=== PATIENT | female | born 1980 | race Caucasian/White ===

== ENCOUNTER 2024-12-16 07:09 | Day surgery (SDC) | payer SELFPAY, OTHER ==
[2024-12-16] VITALS (13 sets, daily range): BP systolic 100–120; BP diastolic 66–89; PULSE 60–87; RESP 16–20; TEMP 36.2–36.6; O2SAT 99–100; BMI 22.6
--- OUTSIDE RECORDS SUMMARY | 2024-12-16 07:23 | XMS RPT_ITS | CCD ---
Author Organization [facility] CliniSymd Care Team Providers Care Line Service Technician Name Role Phone Dr. David Bonner DO Primary Care Provider Dr. David Bonner DO Referring Provider Martha BARCLAY, Dr. Gtz Attending Provider David Bonner Primary Care Unavailable David Bonenr Referring Unavailable Tresa Thomas Attending Unavailable Tresa Thomas Attending Unavailable Tresa Thomas Referring Unavailable David Bonner Primary Care Unavailable Medications Current Medications Medication Drug Class(es) Dates Sig (Normalized) Sig (Original) B-Complex With Vitamin C tablet (1 source) Start: 11-21-2024 B-Complex With Vitamin C tablet Active 1 {tbl} PO daily November 21, 2024 12:00am Problems Problem Classification Problem Date Documented Da te Episodic/Chronic Abdominal pain (1 source) Right upper quadrant pain; Translations: [Right upper quadrant pain] 11-21-2024 Episodic Anxiety disorders (1 source) Anxiety; Translations: [Anxiety disorder, unspecified] 11-21-2024 Chronic Gastrointestinal hemorrhage (1 source) Hematochezia; Translations: [Melena] 11-21-2024 Episodic Mood disorders (1 source) Depressive disorder; Translations: [Depression] 11-21-2024 Chronic Results Test Name Value Interpretation Reference Range Facil ity Surgery Visit Reporton 11-21 Surgery Visit Report [facility] [address] [place], [place] [address]. [address] [place] [address] OFFICE VISIT Date of Service: 11/21/24 MR#: [id number] Acct: [id number] Name: MAGNO DOUGLAS [place] Rep #: [id number] : 1980 Provider: Dr. Tresa beauchamp MD Age/Sex: 44/F Location: [facility] Status: Signed Intake Vital Signs 11/21/24 09:25 Height 5 ft 6 in Weight: 146 lb BMI 23.6 BP 120/79 Blood Pressure Location Rt brachial Position Sitting Respiration 16 Intake Visit Reasons: RUQ PAIN-self pay Chief Complaint: ruq Histology Tech Required: No Is patient in pain?: Yes (ruq discomfort) Allergies No Known Allergies Allergy (Unverified 11/21/24 09:26) Medications ???Medication ???Instructions ???Recorded ???Confirmed ???Type B-complex with vitamin C 1 tab PO QDAY 11/21/24 11/21/24 Hi story Have you fallen in the past year?: No PFSH Medical History (Updated 11/21/24 @ 10:17 by Chloé Pepper) Gallstones Blood in stool RUQ pain Depression Anxiety Family History (Updated 11/21/24 @ 09:25 by Chloé Pepper) Father Cancer Brother Hypertension Mother CVA (cerebral vascular accident) Social History (Updated 11/21/24 @ 09:25 by Chloé Pepper) Smoking Status: Never smoker alcohol intake: never HPI HPI HPI: 44 y/o F presents due to cholelithiasis and RUQ. Pt has had symptoms about 6 months, watching what she eats avoiding fatty/greasy food. US showed cholelithiasis normal wall and no pericholecystic fluid, normal LFTs. denies GERD symptoms. ROS General General: No weight change, appetite, fatigue, colon cancer or breast cancer HEENT HEENT: No difficulty swallowing, eye injury, eye surgery, swollen glands or hoarseness Endo Endocrine: No thyroid disease, diabetes mellitus, thyroid cancer, Hair loss, heat intolerance or cold intolerance Skin Skin: No rash or changing moles Musc Musculoskeletal: No back problems, arthritis, rheumatoid arthritis, gout or joint pain Cardio Cardiovascular: No murmur, pacemaker, heart disease, atrial fibrillation, high blood pressure, heart attack, heart stent, palpitations, shortness of breath with exertion or chest pain Psych Psychiatric: Yes depression and anxiety; No hearing voices Resp Respiratory: No shortness of breath, No sleep apnea, No cough, No COPD, No asthma, No emphysema and No wheezing Gastro Gastrointestinal: Yes abdominal pain, No nausea or vomiting, No diarrhea, No constipation, No blood in stool, No acid reflux, No hemorrhoids, No ulcers, Yes gallbladder problem and No black,tarry stools Bartolo Hematologic: No blood thinners, No blood disorders, No bleeding, No anemia and No blood clots Neuro Neurologic: No numbness and No tingling Exam Const General: cooperative, healthy appearing, comfortable and no acute distress HENTX Head: normocephalic and atraumatic Neck Neck: supple Resp Effort Inspection: normal respiratory effort Cardio Rate: regular rate GI Inspection: non-distended Palpation: soft and nontender Skin General: no rashes or lesions noted Neuro General: CN's II-XI intact bilaterally Extrem General: normal to inspection Psych Mental Status: mental status grossly normal Attitude: cooperative Assessment and Plan Assessment and Plan (1) Gallstones: Status: Acute (2) RUQ pain: Status: Acute Plan Reviewed the anatomy with the patient and discussed the procedure: robotic/laparoscopic cholecystectomy with possible cholangiograms/ICG injection, possible open. Review risks including but not limited to bleeding, infection, hernia, bile leak, retained gallstones requiring another procedure ERCP- Endoscopic Retrograde Cholangiopancreatograp hy, injury to another organ (bile ducts, common bile duct, small bowel, etc.) and conversion to an open procedure. All questions were answered. Coding Level of Care Code Off vis,new,level 3 Diagnoses Gallstones K80.20 RUQ pain R10.11 Clinical Quality Measures Falls Risk Screening/Assistive Devices Have you fallen in the past year?: No 11/22/24 1259 Date Tresa Thomas MD Cosigner Signature: Date (if applicable) CC: Dr. David Bonner MD [facility] Vital Signs Date Time Vital Sign Value Performing Clinician Faci lity 11-21-2024 09:25-0400 Body height 167.[address] David Bonner DO Work Phone: [facility] 11-21-2024 09:25-0400 Body mass index (BMI) [Ratio] 23.6 kg/m2 Dr. David Bonner DO Work Phone: [facility] 11-21-2024 09:25-0400 Body weight 66.[address] David Bonner DO Work Phone: [facility] 11-21-2024 09:25-0400 Diastolic blood pressure 79 mm[Hg] Dr. David Bonner DO Work Phone: [facility] 11-21-2024 09:25-0400 Respiratory rate 16 /min Dr. David Bonner DO Work Phone: [facility] 11-21-2024 09:25-0400 Systolic blood pressure 120 mm[Hg] Dr. David Bonner DO Work Phone: [facility] Encounters Encounter Date Encounter Type Care Provider Facility Start: 12-16-2024 ambulatory Tresa Thomas Facilit y:[facility] Start: 12-13-2024 Encounter for other preprocedural examination [facility] Start: 11-21-2024 End: 11-21-[address] Tresa Thomas MD -[facility] Work Phone: Start: 11-21-2024 End: 11-21-[address] David Bonner DO Work Phone: [facility] Work Phone: Payers Date Payer Category Payer Unknown . 2024 Self-pay Unknown [id number] Unknown [id number] Social History Date Type Detail Facility [facility]: [facility]24 [facility] Start: 1980 Sex Assigned At Female [facility] Evaluation note Note Date & Type Note Facility Evaluation note No assessment information availa ble [facility] Work Phone: Reason for referral (narrative) Note Date & Type Note Facility Reason for referral (narrative) No reason for referral information available [facility] Work Phone: Chief Complaint and Reason for Visit Chief Complaint Admit Date RUQ PAIN-self pay November 21, 2024 9:11a m Family History No Family History Records Found Relationship Condition Age at Onset Recorded Date/T maryellen father Malignant neoplasm Unknown brother Hypertension Unknown mother Cerebrovascular accident (CVA) Unknown Summary Purpose Advance Directives No Advanced Directives Records Found Additional Source Comments Care Teams (unrecognized sec tion and content) Team Status: Active Member Role Status Dates Dr. David Bonner DO Primary Care Provider Active Team Status: Inactive Member Role Status Dates Dr. David Bonnre DO Primary Care Provider Active Start: November 21, 2024 End: November 21, 2024 Dr. David Bonner DO Referring Provider Active Start: November 21, 2024 End: November 21, 2024 Dr. Tresa Thomas MD Attending Provider Active Start: November 21, 2024 End: November 21, 2024 Goals (unrecognized section and content) Goals may be documented in a n alternate section INFORMATION SOURCE (unrecogn ized section and content) DATE CREATED AUTHOR 12/14/2024 [facility] FOR RECORDS PERTAINING TO PATIENTS WHO ARE OR HAVE BEEN ENROLLED IN A CHEMICAL DEPENDENCY/SUBSTANCEABUSE PROGRAM, SOME INFORMATION MAY BE OMITTED. This clinical summary was aggregated from multiple sources. Caution should be exercised in using it in the provision of clinical care. This summary normalizes information from multiple sources, and as a consequence, information in this document may materially change the coding, format and clinical context of patient data. In addition, data may be omitted in some cases. CLINICAL DECISIONS SHOULD BE BASED ON THE PRIMARY CLINICAL RECORDS. [employer] provides no warranty or guarantee of the accuracy or completeness of information in this document.
--- NOTE | 2024-12-16 07:37 | EKG12_ITS ---
Test Reason : PRE OP Blood Pressure : */* mmHG Vent. Rate : 89 BPM Atrial Rate : 89 BPM P-R Int : 156 ms QRS Dur : 80 ms QT Int : 356 ms P-R-T Axes : 65 67 46 degrees QTcB Int : 433 ms Normal sinus rhythm Nonspecific ST abnormality Abnormal ECG No previous ECGs available Confirmed by OPAL BARCLAY, JESSICA ([id number]), commissioning editor ABY JURADO ([id number]) on 12/18/2024 1:25:04 PM Referred By: Tresa Thomas Confirmed By: JESSICA JOSEPH MD
[2024-12-16 07:41] LABS: Internal QC Validated? YES +Cl - CLEAR BKGD; Pregnancy, Urine Negative Negative
--- NOTE | 2024-12-16 07:47 | HP.PCM_ITS ---
History and Physical Date of Admission: 12/16/24 Date of Service: 11/21/24 MR#: [id number] Acct: [id number] Name: MAGNO DOUGLAS Rep #: [id number] : 1980 Provider: Dr. Tresa Thomas MD Age/Sex: 44/F Location: [facility] Status: Signed Intake Vital Signs 11/21/2508:25 Height 5 ft 6 in Weight: 146 lb BMI 23.6 BP 120/79 Blood Pressure Location Rt brachial Position Sitting Respiration 16 Intake Visit Reasons: RUQ PAIN-self pay Chief Complaint: ruq Applications Specialist Required: No Is patient in pain?: Yes (ruq discomfort) Allergies No Known Allergies Allergy (Unverified 11/21/24 09:26) Medications ?Medication ?Instructions ?Recorded ?Confirmed ?Type B-complex with vitamin C 1 tab PO QDAY 11/21/24 11/21/24 History Have you fallen in the past year?: No PFSH Medical History (Updated 11/21/24 @ 10:17 by Chloé Pepper) Gallstones Blood in stool RUQ pain Depression Anxiety Family History (Updated 11/21/24 @ 09:25 by Chloé Pepper) Father CancerBrother HypertensionMother CVA (cerebral vascular accident) Social History (Updated 11/21/24 @ 09:25 by Chloé Pepper) Smoking Status: Never smoker alcohol intake: never HPI HPI HPI: 44 y/o F presents due to cholelithiasis and RUQ. Pt has had symptoms about 6 months, watching what she eats avoiding fatty/greasy food. US showed cholelithiasis normal wall and no pericholecystic fluid, normal LFTs. denies GERD symptoms. ROS General General: No weight change, appetite, fatigue, colon cancer or breast cancer HEENT HEENT: No difficulty swallowing, eye injury, eye surgery, swollen glands or hoarseness Endo Endocrine: No thyroid disease, diabetes mellitus, thyroid cancer, Hair loss, heat intolerance or cold intolerance Skin Skin: No rash or changing moles Musc Musculoskeletal: No back problems, arthritis, rheumatoid arthritis, gout or joint pain Cardio Cardiovascular: No murmur, pacemaker, heart disease, atrial fibrillation, high blood pressure, heart attack, heart stent, palpitations, shortness of breath with exertion or chest pain Psych Psychiatric: Yes depression and anxiety; No hearing voices Resp Respiratory: No shortness of breath, No sleep apnea, No cough, No COPD, No asthma, No emphysema and No wheezing Gastro Gastrointestinal: Yes abdominal pain, No nausea or vomiting, No diarrhea, No constipation, No blood in stool, No acid reflux, No hemorrhoids, No ulcers, Yes gallbladder problem and No black,tarry stools Bartolo Hematologic: No blood thinners, No blood disorders, No bleeding, No anemia and No blood clots Neuro Neurologic: No numbness and No tingling Exam Const General: cooperative, healthy appearing, comfortable and no acute distress HENMT Head: normocephalic and atraumatic Neck Neck: supple Resp Effort & Inspection: normal respiratory effort Cardio Rate: regular rate GI Inspection: non-distended Palpation: soft and nontender Skin General: no rashes or lesions noted Neuro General: CN's II-XI intact bilaterally Extrem General: normal to inspection Psych Mental Status: mental status grossly normal Attitude: cooperative Assessment and Plan Assessment and Plan (1) Gallstones: Status: Acute (2) RUQ pain: Status: Acute Plan Reviewed the anatomy with the patient and discussed the procedure: robotic/laparoscopic cholecystectomy with possible cholangiograms/ICG injection, possible open. Review risks including but not limited to bleeding, infection, hernia, bile leak, retained gallstones requiring another procedure ERCP- Endoscopic Retrograde Cholangiopancreatography, injury to another organ (bile ducts, common bile duct, small bowel, etc.) and conversion to an open procedure. All questions were answered. Coding Level of Care Code Off vis,new,level 3 Diagnoses Gallstones K80.20 RUQ pain R10.11 Clinical Quality Measures Falls Risk Screening/Assistive Devices Have you fallen in the past year?: No 11/22/24 1259 <Electronically signed by Tresa Thomas MD> Date Tresa Thomas MD
[2024-12-16] MEDS: INDOCYANINE GREEN 3.75 MG in Syringe 1.5 ML 999 MG IV (08:00)
[2024-12-16] MEDS: Lactated Ringers 1,000 ML 15 ML IV ×2 (08:01→10:06)
--- NOTE | 2024-12-16 08:15 | PCM.PRE.AN2 ---
ASA Classification* ASA Classification ASA Classification: 2 Assessment & Plan Anesthesia* Anesthesia Assessment Anesthesia Assessment: Discussed sedation and/or anesthesia options, risks, benefits, and alternatives with patient/parents/legal guardian/POA. Questions invited. The patient/parents/legal guardian/POA seems to understand and agrees to proceed with anesthesia plan. Reviewed the physical assessment, medical history, allergy history and patient home medications list prior to surgery/procedure/anesthetic and documented any changes. Performed airway and anesthesia risk assessments. Anesthesia Type Anesthesia Type: General History Source History Obtained from:: Patient and Chart Anesthesia Focused Assessment* Temperature: 98 F Pulse Rate: 87 Blood Pressure: 118/89 Respiratory Rate: 16 Pulse Ox: 100 Oxygen Delivery Method: Room Air Airway Assessment Mouth opens: >3 cm Mallampati Score: I Teeth Condition: Partial and Upper Labs Anesthesia Preop lab: CBC CHEMISTRY COAG Urine Test Negative Negative 12/16/24 07:30 12/16/24 Pre-Assessment Diagnosis/Proposed Procedure Planned Operative Procedure(s): (N/A) Robotic Cholecystectomy Anesthesia History Anesthesia History - magnetic tester: Anesthesia History - magnetic tester Hx Hospitalization No 12/13/24 08:20 Any Problems With Anesthesia No 12/13/24 08:20 Cholinesterase deficiency No 12/13/24 08:20 You/Your Family Experience No 12/13/24 08:20 fever (hyperthermia) with Relationship Recent Exposure to Contagious No 12/16/24 07:48 Disease Does patient have nerve No 12/13/24 08:20 stimulator Patient instructed to have device shut off --Does patient have Pacemaker No 12/16/24 07:48 or ICD? When Was Last Pacemaker Check QUESTION #4 FULL TEXT: You/Your Family Experience fever (hyperthermia) with Anesthesia Last Oral Intake Last Oral intake: Last Oral Intake NPO since 20:00 12/16/24 07:48 Meds taken in AM with sips of No 12/16/24 07:48 water? Meds patient instructed to take am of surgery PONV PONV - magnetic tester: PONV - magnetic tester Female Yes 12/13/24 08:20 HX of Motion Sickness No 12/13/24 08:20 HX of N/V After Surgery No 12/13/24 08:20 Non-Smoker Yes 12/13/24 08:20 Duration of Surgery greater Yes 12/13/24 08:20 than 60 minutes Number of Risk Factors 3 12/13/24 08:20 PONV Score Moderate Risk 12/13/24 08:20 Height & Weight Height & Weight: Anesthesia: Height & Weight Height 5 ft 6 in 12/16/24 07:48 Weight: 63.6 kg 12/16/24 07:48 Body Mass Index (BMI) 22.6 12/16/24 07:48 Respiratory Assessment Respiratory Assessment - magnetic tester: Respiratory Tract Infection Hx - magnetic tester Hx Respiratory Tract Infection No 12/13/24 08:20 STOP Sleep Apnea STOP Sleep Apnea - magnetic tester: STOP Sleep Apnea - magnetic tester Hx Hypertension No 12/13/24 08:20 Hx Sleep Apnea No 12/13/24 08:20 CPAP BIPAP Do you snore loudly (louder No 12/13/24 08:20 than talking or can be heard Do you often feel tired/ No 12/13/24 08:20 fatigued/ sleepy during daytime? Has anyone observed you stop No 12/13/24 08:20 breathing during sleep? STOP Results Negative 12/13/24 08:20 QUESTION #5 FULL TEXT : Do you snore loudly (louder than talking or can be heard through closed doors)? Tobacco Use History Tobacco Use History - magnetic tester: Tobacco Use History - magnetic tester Tobacco Use Smoking Status Former smoker 12/13/24 08:20 Hx Tobacco Use No 12/13/24 08:20 Years Smoking Packs Smoked per Day Smoking Cessation Date was Yes - quit smoking within 15 12/13/24 08:20 within the last 15 years years Hx Smoking Cessation Date Hx Smoking Cessation Counseling Hematologic Medial History Hematologic Hx - magnetic tester: Hematologic Medical Hx - documentation lead Hx of Blood Transfusion No 12/13/24 08:20 Hx of Transfusion in last 3 No 12/13/24 08:20 Months Date of Last Transfusion (if within last 3 months) Ever experience any problems No 12/13/24 08:20 with transfusion(s)? Specify any problems Hx of Preganancy in last 3 No 12/13/24 08:20 Months Nurse Filling Out Transfusion MGRIFFITH 12/13/24 08:20 & Questions: Date: 12/13/24 12/13/24 08:20 Time: 08:22 12/13/24 08:20 Patient unable to answer at this time (ie. confused, unrespo /Reproduction History /Reproductive History - magnetic tester: /Reproductive Hx- magnetic tester Hx Now No 12/13/24 08:20 Gestational Age (in weeks): EDC: Hx Hx Para Hx Section SAB No 12/13/24 08:20 Active Medications Active Medications: Current Medications Generic Name Dose Route Start Last Admin Trade Name Kuldeep PRN Reason Stop Dose Admin Cefazolin Sodium 2 gm/ Sodium 110 mls @ 200 mls/hr 12/16/24 08:40 Chloride IV 12/16/24 09:12 INTRAOP ONE Lactated Ringer's 1,000 mls @ 15 mls/hr 12/16/24 07:30 12/16/24 08:01 IV 15 mls/hr .Q48H MADHAV Administration PFSH Medical History Wears glasses Wears dentures History of GI bleed Former smoker Gallstones Blood in stool RUQ pain Depression Anxiety Home Medications ?Medication ?Instructions ?Recorded ?Last Taken ?Type B-complex with vitamin C 1 tab PO QDAY 11/21/24 Unknown History Allergy/AdvReac Type Severity Reaction Status Date / Time No Known Allergies Allergy Verified 12/16/24 07:47 Family History Father Cancer Brother Hypertension Mother CVA (cerebral vascular accident) Surgical History No history of previous surgery Social History Smoking Status: Former smoker alcohol intake: never Review of Systems (Anesthesia) ROS Narrative System reviewed and no additional complaints, except as documented. Physical Exam Const alert and oriented x3 General Appearance: anxious Orientation / Consciousness: awake
--- NOTE | 2024-12-16 08:19 | PRE.ANES_ITS ---
ASA Classification* ASA Classification ASA Classification: 2 Assessment & Plan Anesthesia* Anesthesia Assessment Anesthesia Assessment: Discussed sedation and/or anesthesia options, risks, benefits, and alternatives with patient/parents/legal guardian/POA. Questions invited. The patient/parents/legal guardian/POA seems to understand and agrees to proceed with anesthesia plan. Reviewed the physical assessment, medical history, allergy history and patient home medications list prior to surgery/procedure/anesthetic and documented any changes. Performed airway and anesthesia risk assessments. 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 When Was Last Pacemaker Check QUESTION #4 FULL TEXT: You/Your Family Experience fever (hyperthermia) with Anesthesia Last Oral Intake Last Oral intake: Last Oral Intake NPO since 20:00 12/16/24 07:48 Meds taken in AM with sips of No 12/16/24 07:48 water? Meds patient instructed to take am of surgery PONV PONV - sales representative raw fibers: PONV - sales representative raw fibers Female Yes 12/13/24 08:20 HX of Motion Sickness No 12/13/24 08:20 HX of N/V After Surgery No 12/13/24 08:20 Non-Smoker Yes 12/13/24 08:20 Duration of Surgery greater Yes 12/13/24 08:20 than 60 minutes Number of Risk Factors 3 12/13/24 08:20 PONV Score Moderate Risk 12/13/24 08:20 Height & Weight Height & Weight: Anesthesia: Height & Weight Height 5 ft 6 in 12/16/24 07:48 Weight: 63.6 kg 12/16/24 07:48 Body Mass Index (BMI) 22.6 12/16/24 07:48 Respiratory Assessment Respiratory Assessment - sales representative raw fibers: Respiratory Tract Infection Hx - sales representative raw fibers Hx Respiratory Tract Infection No 12/13/24 08:20 STOP Sleep Apnea STOP Sleep Apnea - sales representative raw fibers: STOP Sleep Apnea - sales representative raw fibers Hx Hypertension No 12/13/24 08:20 Hx Sleep Apnea No 12/13/24 08:20 CPAP BIPAP Do you snore loudly (louder No 12/13/24 08:20 than talking or can be heard Do you often feel tired/ No 12/13/24 08:20 fatigued/ sleepy during daytime? Has anyone observed you stop No 12/13/24 08:20 breathing during sleep? STOP Results Negative 12/13/24 08:20 QUESTION #5 FULL TEXT : Do you snore loudly (louder than talking or can be heard through closed doors)? 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 Specify any problems Hx of Preganancy in last 3 No 12/13/24 08:20 Months Nurse Filling Out Transfusion MGRIFFITH 12/13/24 08:20 & Questions: Date: 12/13/24 12/13/24 08:20 Time: 08:22 12/13/24 08:20 Patient unable to answer at this time (ie. confused, unrespo /Reproduction History /Reproductive History - sales representative raw fibers: /Reproductive Hx- sales representative raw fibers Hx Now No 12/13/24 08:20 Gestational Age (in weeks): EDC: Hx Hx Para Hx Section SAB No 12/13/24 08:20 Active Medications Active Medications: Current Medications Generic Name Dose Route Start Last Admin Trade Name Freq PRN Reason Stop Dose Admin Cefazolin Sodium 2 gm/ Sodium 110 mls @ 200 mls/hr 12/16/24 08:40 Chloride IV 12/16/24 09:12 INTRAOP ONE Lactated Ringer's 1,000 mls @ 15 mls/hr 12/16/24 07:30 12/16/24 08:01 IV 15 mls/hr .Q48H MADHAV Administration PFSH Medical History Wears glasses Wears dentures History of GI bleed Former smoker Gallstones Blood in stool RUQ pain Depression Anxiety Home Medications ?Medication ?Instructions ?Recorded ?Last Taken ?Type B-complex with vitamin C 1 tab PO QDAY 11/21/24 Unkno wn History Allergy/AdvReac Type Severity Reaction Status Date / Time No Known Allergies Allergy Verified 12/16/24 07:47 Family History Father Cancer Brother Hypertension Mother CVA (cerebral vascular accident) Surgical History No history of previous surgery Social History Smoking Status: Former smoker alcohol intake: never Review of Systems (Anesthesia) ROS Narrative System reviewed and no additional complaints, except as documented.
--- NOTE | 2024-12-16 08:28 | PRE.ANES_ITS ---
ASA Classification* ASA Classification ASA Classification: 2 Assessment & Plan Anesthesia* Anesthesia Assessment Anesthesia Assessment: Discussed sedation and/or anesthesia options, risks, benefits, and alternatives with patient/parents/legal guardian/POA. Questions invited. The patient/parents/legal guardian/POA seems to understand and agrees to proceed with anesthesia plan. Reviewed the physical assessment, medical history, allergy history and patient home medications list prior to surgery/procedure/anesthetic and documented any changes. Performed airway and anesthesia risk assessments. 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 When Was Last Pacemaker Check QUESTION #4 FULL TEXT: You/Your Family Experience fever (hyperthermia) with Anesthesia Last Oral Intake Last Oral intake: Last Oral Intake NPO since 20:00 12/16/24 07:48 Meds taken in AM with sips of No 12/16/24 07:48 water? 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 Female Yes 12/13/24 08:20 HX of Motion Sickness No 12/13/24 08:20 HX of N/V After Surgery No 12/13/24 08:20 Non-Smoker Yes 12/13/24 08:20 Duration of Surgery greater Yes 12/13/24 08:20 than 60 minutes Number of Risk Factors 3 12/13/24 08:20 PONV Score Moderate Risk 12/13/24 08:20 Height & Weight Height & Weight: Anesthesia: Height & Weight Height 5 ft 6 in 12/16/24 07:48 Weight: 63.6 kg 12/16/24 07:48 Body Mass Index (BMI) 22.6 12/16/24 07:48 Respiratory Assessment Respiratory Assessment - humanities teacher: Respiratory Tract Infection Hx - humanities teacher Hx Respiratory Tract Infection No 12/13/24 08:20 STOP Sleep Apnea STOP Sleep Apnea - humanities teacher: STOP Sleep Apnea - humanities teacher Hx Hypertension No 12/13/24 08:20 Hx Sleep Apnea No 12/13/24 08:20 CPAP BIPAP Do you snore loudly (louder No 12/13/24 08:20 than talking or can be heard Do you often feel tired/ No 12/13/24 08:20 fatigued/ sleepy during daytime? Has anyone observed you stop No 12/13/24 08:20 breathing during sleep? STOP Results Negative 12/13/24 08:20 QUESTION #5 FULL TEXT : Do you snore loudly (louder than talking or can be heard through closed doors)? 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 Specify any problems Hx of Preganancy in last 3 No 12/13/24 08:20 Months Nurse Filling Out Transfusion MGRIFFITH 12/13/24 08:20 & Questions: Date: 12/13/24 12/13/24 08:20 Time: 08:22 12/13/24 08:20 Patient unable to answer at this time (ie. confused, unrespo /Reproduction History /Reproductive History - humanities teacher: /Reproductive Hx- humanities teacher Hx Now No 12/13/24 08:20 Gestational Age (in weeks): EDC: Hx Hx Para Hx Section SAB No 12/13/24 08:20 Active Medications Active Medications: Current Medications Generic Name Dose Route Start Last Admin Trade Name Freq PRN Reason Stop Dose Admin Cefazolin Sodium 2 gm/ Sodium 110 mls @ 200 mls/hr 12/16/24 08:40 Chloride IV 12/16/24 09:12 INTRAOP ONE Lactated Ringer's 1,000 mls @ 15 mls/hr 12/16/24 07:30 12/16/24 08:01 IV 15 mls/hr .Q48H MADHAV Administration PFSH Medical History Wears glasses Wears dentures History of GI bleed Former smoker Gallstones Blood in stool RUQ pain Depression Anxiety Home Medications ?Medication ?Instructions ?Recorded ?Last Taken ?Type B-complex with vitamin C 1 tab PO QDAY 11/21/24 Unkno wn History Allergy/AdvReac Type Severity Reaction Status Date / Time No Known Allergies Allergy Verified 12/16/24 07:47 Family History Father Cancer Brother Hypertension Mother CVA (cerebral vascular accident) Surgical History No history of previous surgery Social History Smoking Status: Former smoker alcohol intake: never Review of Systems (Anesthesia) ROS Narrative System reviewed and no additional complaints, except as documented.
[2024-12-16] MEDS: Cefazolin 2 GM in 0.9% Normal Saline (100mL Bag) 100 ML IV (08:35)
--- NOTE | 2024-12-16 08:40 | GALL_PTH ---
PATIENT: MAGNO DOUGLAS LOC: [facility] [place] U#:[id number] AGE/SX: 44/F ROOM: RE12/16/[address]: Dr. Tresa Thomas MD : 1980 BED: DIS: 12/16/2024 SPEC #: [id number] RECD: 12/16/24 11:09 STATUS: NOLAN MATTI #: [id number] DEMARIO: 12/16/24 08:[address]: Tresa Thomas DEPT: SURGICAL PATHOLOGY RECD BY: Kenny Forde ENTERED: 12/16/24 11:43 SP TYPE: NICK MATUTE DR: Dr. David Bonner, DO Tissues: A - Gallbladder, NOS Procedures: Surgery Specimen Level III HEADER OPERATION: Robotic cholecystectomy PRE-OP DIAGNOSIS: Gallstones, right upper quadrant pain TISSUE SUBMITTED: A- Gallbladder MICROSCOPIC DIAGNOSIS A. Gallbladder, gallstones, cholecystectomy: - Cholelithiasis. MICROSCOPIC DESCRIPTION Slides are reviewed. GROSS DESCRIPTION A. Received in formalin labeled with the patient's name and date of . Designated as gallbladder is a 7.2 x 3.0 x 2.9 cm pink-purple, distended and intact gallbladder with attached patent cystic duct (inked black, shaved). A lymph node is not present. Opening reveals light green tenacious bile and multiple irregular pigmented choleliths, ranging <0.1 cm to 0.5 cm. The mucosa is farris-red and granular with a maximum wall thickness of <0.1 cm. Forensic Psychiatrist sections are submitted in 1 cassette. TN 12/16/2024 CPT:24935
--- NOTE | 2024-12-16 09:43 | PCM.OPRPT ---
Operative Report (Standard) Operative Information Date of Procedure: 12/16/24 Pre-Operative Diagnosis: Cholelithiasis, right upper quadrant pain Post-Operative Diagnosis: Same Surgery/Procedure Performed: Robotic cholecystectomy with ICG hob mill operator: Yes Screen Printing Equipment Setter: Isaac Salvador Tasks completed by service assistant: Opening & closing Type of Anesthesia: General/Supplemental RN Documented Start/Stop Times: Operation Date: 12/16/24 08:40 Case Time Into Pre-Op 12/16/24 07:25 Out of Pre-Op 12/16/24 08:31 Anesthesia Start 12/16/24 08:34 Into Room 12/16/24 08:34 Procedure Start 12/16/24 08:54 Procedure End 12/16/24 09:48 Anesthesia End 12/16/24 09:54 Out of Room 12/16/24 09:54 Into Recovery 12/16/24 09:59 Into Phase II Recovery 12/16/24 11:01 Out of Recovery 12/16/24 11:01 Procedure Start Time: 08:54 Procedure Stop Time: 09:48 Select all DRAINS/GRAFTS/IMPLANTS that apply: None Special Medications: Ancef 2 g IV x 1 Estimated Blood Loss: 10 cc Specimen collected: Yes Description of specimen(s) removed: Gallbladder Description of surgery: Indications: this is a 44 year-old female who developed abdominal pain/nausea/vomiting and on workup was found to have cholelithiasis, with a normal common bile duct. Laparoscopic cholecystectomy was elected. Description procedure: The patient was placed on operating table in supine position. A timeout was completed verifying correct patient, procedure, site, position and special equipment prior to beginning procedure. General Anesthesia was induced. The abdomen was prepped and draped in usual sterile fashion. An incision was made in the natural skin line below the umbilicus. The fascia was elevated and incised. The peritoneum was elevated and incised. Entry into the peritoneum was confirmed visually and no bowel was noted in the vicinity of the incision. Charles trocar was placed. The abdomen was insufflated with carbon dioxide to a pressure of 12-15 mmHg. Patient tolerated insufflation well. The laparoscope was then inserted and abdomen inspected. No injuries from initial trocar placement were noted. Additional trochars were then inserted in the following locations 8 mm trocar left upper quadrant and 2 more 8 mm trochars in right lower quadrant and left lower quadrant. The abdomen was inspected no abnormalities were found. The table is placed in reverse Trendelenburg position with the right side up. Robot was docked. The adhesions between the gallbladder and omentum were taken down carefully. The dome of the gallbladder was grasped with atraumatic grasper passed through the lateral port and retracted over the dome of the liver. Infundibulum was then grasped with atraumatic grasper through the midclavicular port and retracted to the right lower quadrant. This maneuver exposed Calot's triangle. The peritoneum overlying the gallbladder infundibulum was then incised and cystic duct and artery identified and circumferentially dissected. ICG was used to visualize the cystic duct. The cystic duct and artery were then doubly clipped and divided close to the gallbladder. The gallbladder then dissected from its peritoneal attachments by electrocautery. Hemostasis was checked and the gallbladder was removed using the endoscopic retrieval bag through the umbilical port. The gallbladder is passed off table as specimen. The gallbladder fossa was irrigated with saline and hemostasis obtained. There is no evidence of bleeding from the gallbladder fossa or cystic artery leakage of bile from the cystic duct stump. Secondary trochars removed under direct vision. No bleeding was noted the trocar sites. The laparoscope was withdrawn and umbilical trocar removed. The abdomen was allowed to collapse. The fascia of the 12 mm trocar was closed with a [id number] 0 Vicryl suture. The skin was closed with sutures of 4-0 Monocryl and Steri-Strips. The patient was extubated. The patient tolerated procedure well and was taken to the postanesthesia care unit in stable condition. Surgical Findings: See operative report Complications Complications: No
[2024-12-16] MEDS: Bupiv/Epi 0.25% 30 ML Vial (09:44)
--- NOTE | 2024-12-16 09:44 | EX.PCM.DISCH ---
Discharge Instructions Diet Discharge Diet: Light diet - advance as tolerated Activity Discharge Activity: May Not Drive (while taking narcotic pain medications.) May shower in (days): 1 Lifting Restrictions: no lifting >20 lbs x 2 wks, no strenuous exercise for 4 wks Dressing / Incision Call your doctor if your incision/area has: Continuous Slow Oozing, Sudden Increased Bleeding, Increased Pain/ Swelling, Increased Redness, Foul Smelling Discharge and Swelling at the incision site Call your doctor if you observe: Fever of 101 or Higher Remove Dressing in: 2 days Cleanse incision/area with: Soap & Water Additional Dressing/Incision Instructions:: Steri-Strips will fall off in 7 to 10 days, if they do not fall off okay to remove after 10 days. Follow Up Care Please Follow Up With: Tresa Thomas MD When: Call the office for a follow-up appointment 2 weeks; after 5 PM and on the weekends call [phone] with any concerns. Test Results: Test results from this visit will be discussed in further detail at your follow-up appointment, if applicable. Discharge Plan Admission Attending Provider: Tresa Thomas Primary Care Provider: David Bonner Instructions Print Language: Frisian Discharge Orders/Prescriptions Prescriptions: New oxycodone 5 mg capsule 5 mg PO Q6H PRN (Reason: pain) 3 Days Qty: 10 0RF No Action B-complex with vitamin C Tablet 1 tab PO QDAY Referrals / Follow Up: David Bonner DO [Primary Care Provider] - Disposition Disposition (needs filled in before D/C Order can be placed): Home, Self Care
--- NOTE | 2024-12-16 09:59 | PCM.POST.ANE ---
Anesthesia: Postop Eval I Current Vital Signs Temperature: 97.6 F Pulse Rate: 75 Blood Pressure: 103/67 Respiratory Rate: 20 Pulse Ox: 100 Oxygen Delivery Method: Room Air Assessment Airway patent: Yes Spontaneous unlabored respirations: Yes Mental status: Awake nausea: No Vomiting: No Anesthesia Complication: No Fluid Hydration Crystalloid volume administer (ml): 800 Total IV fluid infused: 800 Progress Note Anesthesia document: Postop Eval 1 completed: Yes
--- NOTE | 2024-12-16 11:27 | POSTOPAN2_ITS ---
Anesthesia Postop Eval I Sum Postop Eval Completion status Anesthesia document: Postop Eval 1 completed: Yes Anesthesia Postop Eval I Summary Anesthesia Postop Eval I Summary: Anesthesia Postop Eval I: Assessment Summary Airway patent Yes 12/16/24 10:00 SOFTWARE RELIABILITY [email or web address] Spontaneous unlabored Yes 12/16/24 10:00 SOFTWARE RELIABILITY [email or web address].[email or web address] respirations Mental status Awake 12/16/24 10:00 SOFTWARE RELIABILITY [email or web address].JDEF nausea No 12/16/24 10:00 SOFTWARE RELIABILITY ENGINEER.JDEF Vomiting No 12/16/24 10:00 SOFTWARE RELIABILITY [email or web address].[email or web address] Anesthesia Postop Eval I: Fluid Summary Crystalloid volume administer 800 12/16/24 10:00 SOFTWARE RELIABILITY [email or web address].JDEF (ml) Colloids volume administered ( ml) Blood Product volume administered (ml) Total IV fluid infused 800 12/16/24 10:00 SOFTWARE RELIABILITY [email or web address].JDEF Anesthesia Postop Eval I: Summary Notes Anesthesia Complication No 12/16/24 10:00 SOFTWARE RELIABILITY [email or web address].JDEF Anesthesia Complication Comment: Post-operative progress note Anesthesia: Postop Eval II Evaluation Mental status: Awake Pain Level: 0 nausea: No Vomiting: No Complications Anesthesia Complication: No
--- NOTE | 2024-12-16 11:27 | PCM.POSTANE2 ---
Anesthesia Postop Eval I Sum Postop Eval Completion status Anesthesia document: Postop Eval 1 completed: Yes Anesthesia Postop Eval I Summary Anesthesia Postop Eval I Summary: Anesthesia Postop Eval I: Assessment Summary Airway patent Yes 12/16/24 10:00 SPORTS ATHLETIC [email or web address] Spontaneous unlabored Yes 12/16/24 10:00 SPORTS ATHLETIC TRAINER.JDEF respirations Mental status Awake 12/16/24 10:00 SPORTS ATHLETIC TRAINER.JDEF nausea No 12/16/24 10:00 SPORTS ATHLETIC TRAINER.JDEF Vomiting No 12/16/24 10:00 SPORTS ATHLETIC TRAINER.JDEF Anesthesia Postop Eval I: Fluid Summary Crystalloid volume administer 800 12/16/24 10:00 SPORTS ATHLETIC TRAINER.JDEF (ml) Colloids volume administered ( ml) Blood Product volume administered (ml) Total IV fluid infused 800 12/16/24 10:00 SPORTS ATHLETIC TRAINER.JDEF Anesthesia Postop Eval I: Summary Notes Anesthesia Complication No 12/16/24 10:00 SPORTS ATHLETIC TRAINER.JDEF Anesthesia Complication Comment: Post-operative progress note Anesthesia: Postop Eval II Evaluation Mental status: Awake Pain Level: 0 nausea: No Vomiting: No Complications Anesthesia Complication: No
== END 2024-12-16 12:37 | disposition home or self-care (01) ==
LOC: SDC 07:15 → AC 07:16
PROVIDERS: Anesthesiology; PCP Family Medicine; Referring Provider Surgery; Visit Provider Surgery
PROC: 0FT44ZZ Resection of Gallbladder, Percutaneous Endoscopic Approach (ICD-10-PCS; CPT 47562; principal; 2024-12-16 08:20)
DX: K80.20 Calculus of gallbladder without cholecystitis without obstruction (principal); Z87.891 Personal history of nicotine dependence
CPT/HCPCS: 47563; S2900; 00790; 81025; 88304; 93005; J2405